=== PATIENT | female | born 1980 | race Caucasian/White ===

== ENCOUNTER 2023-02-27 15:21 | Outpatient (CLI) | payer MEDICAID, SELFPAY ==
[2023-02-27 16:25] LABS: Basophils # 0.1 10^3/uL (0.0-0.1); Basophils % 0.9 %; Eosinophils # 0.2 10^3/uL (0.0-0.8); Eosinophils % 2.9 %; Hematocrit 36.9 % (37.0-47.0); Hemoglobin 12.8 g/dL (11.5-15.3); Lymphocytes # 2.3 10^3/uL (0.8-4.8); Lymphocytes % 30.1 %; Mean Corpuscular HGB Conc 34.7 g/dL (30.0-36.0); Mean Corpuscular Hemoglobin 30.1 pg (28.0-34.0); Mean Corpuscular Volume 86.8 fl (81-99); Mean Platelet Volume 10.6 fL (7.4-10.4); Monocytes # 0.6 10^3/uL (0.2-0.9); Monocytes % 7.3 %; Neutrophils # 4.43 10^3/uL (1.8-7.7); Neutrophils % 58.4 %; Nucleated Red Blood Cells % 0 %; Platelet Count 264 10^3/cmm (130-400); Red Blood Count 4.25 10^6/uL (4.1-5.3); Red Cell Distribution Width 12.2 % (12.1-15.1); White Blood Count 7.6 10^3/uL (4.0-10.0)
[2023-02-27 17:05] LABS: 25 Hydroxy Vitamin D 49 ng/mL (30-100); Alanine Aminotransferase 13 U/L (0-33); Albumin Level 4.7 g/dL (3.5-5.2); Alkaline Phosphatase 64 U/L (35-105); Anion Gap 14.9 (5-19); Aspartate Amino Transferase 16 U/L (0-32); Blood Urea Nitrogen 12 mg/dL (6-20); Calcium 8.8 mg/dL (8.5-10.5); Carbon Dioxide 20 mmol/L (22-29); Chloride 102 mmol/L (98-107); Globulin 2.4 g/dL (1.3-4.6); Glomerular Filtration Rate 135.3 mL/min (90-130); Glucose 78 mg/dL (65-115); Osmolality Calculated 275 mOsm/kg (285-295); Potassium 3.9 mmol/L (3.5-5.1); Sodium 133 mmol/L (136-145); Thyroid Stimulating Hormone 1.33 uIU/mL (0.27-4.20); Total Bilirubin 0.4 mg/dL (0.15-1.2); Total Protein 7.1 g/dL (6.6-8.7)
[2023-02-27 17:22] LABS: Estmated Average Glucose 94; Hemoglobin A1C 4.9 % (4.0-6.0)
== END 2023-02-27 15:22 | disposition home or self-care (01) ==
LOC: LAB 15:27
PROVIDERS: PCP Nurse Practitioner; Visit Provider Nurse Practitioner
DX: R73.09 Other abnormal glucose (principal); E55.9 Vitamin D deficiency, unspecified; E78.2 Mixed hyperlipidemia; I10 Essential (primary) hypertension
CPT/HCPCS: 36415; 80053; 82306; 83036; 84443; 85025

== ENCOUNTER 2023-04-02 20:37 | Emergency (ER) | payer MEDICAID, SELFPAY ==
[2023-04-02 20:50] VITALS: BP 123/72; PULSE 81; RESP 16; TEMP 36.8; O2SAT 95; BMI 24.5
--- NOTE | 2023-04-02 21:06 | W.ED.EAR ---
HPI - Ear Problem General: Chief complaint: Ear Stated complaint: Ear Pain Time Seen by Provider: 04/02/23 20:47 History of Present Illness: 42-year-old female comes in today for complaints of discomfort to the left ear. Patient states that she felt like a pop in her ear then reached up and noticed bloody discharge from her ear canal. Patient has not been swimming. Patient reports not using any Q-tips in her ear. Patient appears in no pain. Patient appears in no acute distress. Associated symptoms: Denies fever(s) Review of Systems Const: Denies: fever(s) ENMT: Reports: ear discharge; Denies: nasal congestion Card: Denies: chest pain Resp: Denies: dyspnea Physical Exam Const: COMMON NORMALS: alert HENMT: COMMON NORMALS: normocephalic and TM's normal bilaterally HEAD & SCALP: normocephalic EXTERNAL AUDITORY CANAL: Abnormal EAC present EAC laterality: left (Dry blood bottom of the canal) Details: erythema TYMPANIC MEMBRANE: TM's normal bilaterally Neck/C-Spine: COMMON NORMALS: full ROM Resp: COMMON NORMALS: normal respiratory effort Cardio: COMMON NORMALS: regular rate and regular rhythm RATE: regular rate RHYTHM: regular rhythm Back/Pelvis: COMMON NORMALS: thoracic and lumbar spine normal to inspection Extremity: COMMON NORMALS: no pedal edema Neuro: SENSORIUM/ORIENTATION: Yes alert Skin: COMMON NORMALS: turgor normal GENERAL SKIN EXAM: turgor normal Course Vital Signs: Vital signs: Vital Signs Temperature 98.2 F 04/02/23 20:50 Pulse Rate 81 04/02/23 20:50 Respiratory Rate 16 04/02/23 20:50 Blood Pressure 123/72 04/02/23 20:50 Pulse Oximetry 95 04/02/23 20:50 Oxygen Delivery Me thod Room Air 04/02/23 20:50 MDM - Ear Medical Decision Making 42-year-old comes in with some bloody discharge from the left ear canal. On exam patient has some dried blood in the bottom of the ear canal. Tympanic membrane's are intact. No signs of perforation or fluid behind the tympanic membrane. Differential diagnosis includes not limited to otitis externa, abrasion to the ear canal, perforation of the TM. We will go ahead and treat with Cortisporin otic drops 4 drops to the affected ear 4 times a day while awake for 7 days. Patient was recommended to follow-up with primary care in 3 days for recheck. Return to ED for new concerns. Patient reported understanding Discharge Plan Discharge Patient Disposition: Home Clinical Impression: Otitis externa Qualifiers: Otitis externa type: unspecified type Chronicity: acute Laterality: left Qualified Code(s): H60.502 - Unspecified acute noninfective otitis externa, left ear Condition: Stable Discharge Orders: Discharge ED (Routine); Ordered 04/02/23 Ordered By: Moe Zhou Referrals: Heather Jorge FNP [Primary Care Provider] - Discharge Diet: Usual diet Discharge Activity: Increase activity as tolerated Patient Instructions: Otitis Externa - Adult Activity Restrictions/Additional Instructions: Use antibiotic eardrops 4 drops to the affected ear 4 times a day while awake. You may place a cottonball in the ear to protect it from wind and discomfort. Use acetaminophen and ibuprofen for pain. Use warm packs for further pain relief. Follow-up with primary care in 3 days for recheck. Return to ED for new concerns. Coding Level of Care Code ED Fundraising Sale Representative for Abby Cueva
[2023-04-02 21:34] VITALS: RESP 16
== END 2023-04-02 21:35 | disposition home or self-care (01) ==
PROVIDERS: Emergency Provider Nurse Practitioner Family; PCP Nurse Practitioner
DX: H60.502 Unspecified acute noninfective otitis externa, left ear (principal)
CPT/HCPCS: 99283

== ENCOUNTER 2024-11-26 16:26 | Emergency (ER) | payer MEDICAID, SELFPAY ==
[2024-11-26 16:33] VITALS: BP 167/93; PULSE 111; RESP 17; TEMP 36.7; O2SAT 99; BMI 24.5
--- NOTE | 2024-11-26 19:47 | USR_ITS ---
PROCEDURE INFORMATION: Exam: US Right Limited Joint or Other Non-Vascular Extremity Structure Exam date and time: 11/26/2024 7:59 PM Age: 44 years old Clinical indication: Pain; Thigh; Right; Edema and other: Erythema; Lower leg; Additional info: Right thigh, abscess TECHNIQUE: Imaging protocol: US right limited joint or other nonvascular extremity structure. Real-time ultrasound with image documentation. Exam focused on the area of clinical interest. COMPARISON: No relevant prior studies available. FINDINGS: Soft tissues: There is a edema and interstitial fluid in the subcutaneous tissues of the right medial thigh with increased flow on color Doppler. Ill-defined fluid measuring 2.5 x 1.5 cm. US/US soft tissue/extremity [id number] IMPRESSION: Edema with ill-defined fluid measuring 2.5 x 1.5 cm suggestive of cellulitis with early abscess formation. No organized collection.
--- NOTE | 2024-11-26 19:48 | ED_ITS ---
HPI - Skin/Abscess/Foreign Bdy 2 General: Chief complaint: Skin/Abscess/Foreign Body Stated complaint: right leg insect bite Time Seen by Provider: 11/26/24 19:31 History of Present Illness: 44-year-old female comes in today with a n area of redness to her right thigh. Patient reports symptoms for about 4 to 5 days. Patient believes that she was bit by a spider. Patient denies any chronic medical problems. Patient is a tobacco user. Related Data Previous Rx's ?Medication ?Instructions ?Recorded amoxicillin 875 mg-potassium 1 tab PO BID #14 tabs clavulanate 125 mg tablet hydrocodone 5 mg-acetaminophen 325 1 tab PO Q6H PRN pa in #7 tabs 11/26/24 mg tablet sulfamethoxazole 800 1 tab PO BID 7 days #14 tabs 11/26/24 mg-trimethoprim 160 mg tablet Allergies Allergy/AdvReac Type Severity Reaction Status Date / Time No Known Allergies Allergy Verified 04/02/23 20:49 Review of Systems 2 General: Reports: 10 or more systems reviewed and unremarkable except in HPI and below Physical Exam 2 Const: COMMON NORMALS: alert HENMT: COMMON NORMALS: normocephalic HEAD & SCALP: normocephalic Neck/C-Spine: COMMON NORMALS: full ROM Resp: COMMON NORMALS: normal respiratory effort and clear to auscultation bilaterally AUSCULTATION: clear to auscultation bilaterally Cardio: COMMON NORMALS: regular rate and regular rhythm RATE: regular rate RHYTHM: regular rhythm Back/Pelvis: COMMON NORMALS: thoracic and lumbar spine normal to inspection Extremity: NARRATIVE EXTREMITY EXAM: Right thigh has a large area of redness approximately inguinal to thigh area of redness and half circumferential of the extremity with a central punctate lesion. Centralized induration approximately 4 cm circular to the lesion. Neuro: SENSORIUM/ORIENTATION: Yes alert Skin: NARRATIVE SKIN EXAM: Large area of redness to the right inner thigh. With punctate lesion. Course 2 Vital Signs: Vital signs: Vital Signs Temperature 98.1 F 11/26/24 16:33 Pulse Rate 111 H 11/26/24 16:33 Respiratory Rate 17 11/26/24 16:33 Blood Pressure 167/93 11/26/24 16:33 Pulse Oximetry 99 11/26/24 16:33 Oxygen Delivery Me thod Room Air 11/26/24 16:33 MDM - Skin/Abscess/Foreign Bdy Medicial Decision Making 44-year-old female comes in today with a large area of redness and tenderness to the right thigh. On exam patient has a centralized lesion surrounded by erythema. Erythema seems to be approximately 28 cm x 11 cm. 4 cm of induration are surrounding the lesion. Differential diagnosis includes not limited to cellulitis, abscess, staph infection, localized reaction insect bite. CBC and CMP were unremarkable. Ultrasound of the area noted no significant collection of fluid for incision and drainage. Patient was given a dose of vancomycin and Rocephin in the emergency room. Patient be continued on Augmentin and Bactrim at home. Encourage fluids rest and follow-up with primary care in 3 to 5 days for recheck. Recommend return to ED for worsening symptoms. Treatment is for cellulitis at this time. Lab Data 11/26/24 21:00 11/26/24 21:00 Radiology Impressions Soft Tissue Ultrasound 11/26/24 19:47 IMPRESSION: Edema with ill-defined fluid measuring 2.5 x 1.5 cm suggestive of cellulitis with early abscess formation. No organized collection. Laboratory Results WBC 9.85 10^3/uL (3.29-11.43) 11/26/24 21:00 RBC 4.15 10^6/uL (3.85-5.65) 11/26/24 21:00 Hgb 12.20 g/dL (11.27-16.99) 11/26/24 21:00 Hct 36.4 % (36-47) 11/26/24 21:00 MCV 87.7 fl (85-98) 11/26/24 21:00 MCH 29.4 pg (27-33) 11/26/24 21:00 MCHC 33.5 g/dL (30-55) 11/26/24 21:00 RDW 12.2 % (12.1-15.1) 11/26/24 21:00 Plt Count 276 10^3/cmm (157-399) 11/26/24 21:00 MPV 9.9 fL (7.4-10.4) 11/26/24 21:00 Neut % (Auto) 71.7 % 11/26/24 21:00 Lymph % (Auto) 18.1 % 11/26/24 21:00 [place] % (Auto) 8.4 % 11/26/24 21:00 Eos % (Auto) 1.1 % 11/26/24 21:00 Baso % (Auto) 0.3 % 11/26/24 21:00 Neut # (Auto) 7.06 10^3/uL (1.8-7.7) 11/26/24 21:00 Lymph # (Auto) 1.8 10^3/uL (0.8-4.8) 11/26/24 21:00 [place] # (Auto) 0.8 10^3/uL (0.2-0.9) 11/26/24 21:00 Eos # (Auto) 0.1 10^3/uL (0.0-0.8) 11/26/24 21:00 Baso # (Auto) 0.0 10^3/uL (0.0-0.1) 11/26/24 21:00 Nucleated RBC % (auto) 0 % 11/26/24 21: Nucleated RBCs # 0.0 /100WBC 11/26/24 21:00 Sodium 137 mmol/L (136-145) 11/26/24 21:00 Potassium 3.6 mmol/L (3.5-5.1) 11/26/24 21:00 Chloride 101 mmol/L (98-107) 11/26/24 21:00 Carbon Dioxide 26 mmol/L (22-29) 11/26/24 21:00 Anion Gap 13.6 (5-19) 11/26/24 21:00 BUN 10 mg/dL (6-20) 11/26/24 21:00 Creatinine 0.6 mg/dL (0.5-0.9) 11/26/24 21:00 GFR Calculation 108.6 mL/min (90-130) 11/26/24 21:00 Glucose 100 mg/dL (65-115) 11/26/24 21:00 Calculated Osmolality 283 mOsm/kg (285-295) L 11/26/24 21:00 Lactic Acid 0.9 mmol/L (0.5-2.2) 11/26/24 21:00 Calcium 8.7 mg/dL (8.5-10.5) 11/26/24 21:00 Total Bilirubin 0.5 mg/dL (0.15-1.2) 11/26/24 21:00 AST 13 U/L (0-32) 11/26/24 21:00 ALT 11 U/L (0-33) 11/26/24 21:00 Alkaline Phosphatase 80 U/L (35-105) 11/26/24 21:00 Total Protein 7.2 g/dL (6.6-8.7) 11/26/24 21:00 Albumin 3.9 g/dL (3.5-5.2) 11/26/24 21:00 Globulin 3.3 g/dL (1.3-4.6) 11/26/24 21:00 All radiology interpretation(s) finalized by discharge Discharge Plan Discharge Patient Disposition: Home Clinical Impression: Cellulitis Qualifiers: Site of cellulitis: extremity Site of cellulitis of extremity: lower extremity Laterality: right Qualified Code(s): L03.115 - Cellulitis of right lower limb Condition: Stable Prescriptions: New amoxicillin-pot clavulanate 875-125 mg tablet 1 tab PO BID Qty: 14 0RF sulfamethoxazole-trimethoprim 800-160 mg tablet 1 tab PO BID 7 Days Qty: 14 0RF hydrocodone-acetaminophen 5-325 mg tablet 1 tab PO Q6H PRN (Reason: pain) Qty: 7 0RF Discharge Orders: Discharge ED (Routine); Ordered 11/26/24 Ordered By: Moe Zhou Referrals: Heather Jorge FNP [Primary Care Provider] - Patient Instructions: Cellulitis (ED) Activity Restrictions/Additional Instructions: Home and rest. Drink plenty of water and fluids. Take antibiotics as directed. Follow-up with primary care in 3 to 5 days for recheck. Return to ED for worsening symptoms such as fever greater than 101, inability to hold down fluids, or new concerns. Print Language: Bulgarian Coding Level of Care Code ED Call Center Team Leader for Abby Cueva
[2024-11-26] MEDS: VANCOMYCIN ADD-Vantage 1,000 MG in 0.9% NaCl ADD-Vantage 250 ML 250 MG IV (21:03)
[2024-11-26] MEDS: sodium chloride 0.9% 1,000 ML 999 ML IV (21:03)
[2024-11-26] MEDS: cefTRIAXone 2,000 mg SDV 2000 MG IVP (21:03)
[2024-11-26 21:07] LABS: Basophils % 0.3 %; Eosinophils # 0.1 10^3/uL (0.0-0.8); Eosinophils % 1.1 %; Hematocrit 36.4 % (36-47); Lymphocytes # 1.8 10^3/uL (0.8-4.8); Lymphocytes % 18.1 %; Mean Corpuscular HGB Conc 33.5 g/dL (30-55); Mean Corpuscular Hemoglobin 29.4 pg (27-33); Mean Corpuscular Volume 87.7 fl (85-98); Mean Platelet Volume 9.9 fL (7.4-10.4); Monocytes # 0.8 10^3/uL (0.2-0.9); Monocytes % 8.4 %; Neutrophils # 7.06 10^3/uL (1.8-7.7); Neutrophils % 71.7 %; Nucleated Red Blood Cells % 0 %; Platelet Count 276 10^3/cmm (157-399); Red Blood Count 4.15 10^6/uL (3.85-5.65); Red Cell Distribution Width 12.2 % (12.1-15.1); White Blood Count 9.85 10^3/uL (3.29-11.43)
[2024-11-26 21:34] LABS: Alanine Aminotransferase 11 U/L (0-33); Albumin Level 3.9 g/dL (3.5-5.2); Alkaline Phosphatase 80 U/L (35-105); Anion Gap 13.6 (5-19); Aspartate Amino Transferase 13 U/L (0-32); Blood Urea Nitrogen 10 mg/dL (6-20); Calcium 8.7 mg/dL (8.5-10.5); Carbon Dioxide 26 mmol/L (22-29); Chloride 101 mmol/L (98-107); Creatinine Clr Calc Pharmacy 98.7262; Globulin 3.3 g/dL (1.3-4.6); Glomerular Filtration Rate 108.6 mL/min (90-130); Glucose 100 mg/dL (65-115); Osmolality Calculated 283 mOsm/kg (285-295); Potassium 3.6 mmol/L (3.5-5.1); Sodium 137 mmol/L (136-145); Total Bilirubin 0.5 mg/dL (0.15-1.2); Total Protein 7.2 g/dL (6.6-8.7)
[2024-11-26 21:35] LABS: Lactic Sepsis W/Reflex 0.9 mmol/L (0.5-2.2)
[2024-11-26] MEDS: HYDROcodone-acetaminophen 5-325 mg Tablet 1 TAB PO (21:57)
[2024-11-26 22:04] VITALS: BP 176/99; PULSE 82; RESP 18; O2SAT 92
== END 2024-11-26 22:11 | disposition home or self-care (01) ==
PROVIDERS: Emergency Provider Nurse Practitioner Family; PCP Nurse Practitioner
DX: L03.115 Cellulitis of right lower limb (principal)
CPT/HCPCS: 76882; 80053; 83605; 85025; 87040; 96365; 96375; 99284; J0696; J3370; J7030; J7050; J9999